=== PATIENT | male | born 1990 | race African-American/Black ===

== ENCOUNTER 2017-06-20 09:18 | Emergency (ER) | payer SELFPAY ==
[~2017-06-20] VITALS: Ht 167.6 cm; Wt 84.1 kg
[2017-06-20 09:21] VITALS: BP 131/78; PULSE 68; TEMP 98
[2017-06-20 11:17] LABS: PH 6 (5-8); SQUAMOUS EPITHELIAL None Seen /hpf; URINE APPEARANCE Clear; URINE BACTERIA None Seen /hpf; URINE BILIRUBIN Negative (NEGATIVE); URINE BLOOD Negative (NEGATIVE); URINE COLOR Yellow; URINE GLUCOSE Negative (NEGATIVE); URINE KETONE Negative (NEGATIVE); URINE RBC 0-2 /hpf; URINE UROBILINOGEN Negative (NEGATIVE); URINE WBC 0-2 /hpf
[2017-06-20 12:34] LABS: CHLAMYDIA/TRACH by PCR Male NOT DETECTED; Neisseria Gon by PCR Male NOT DETECTED
== END 2017-06-20 11:40 | disposition home or self-care (01) ==
LOC: COL.ER 09:18
PROVIDERS: Emergency Medicine
DX: B27.90 Infectious mononucleosis, unspecified without complication (principal); J02.9 Acute pharyngitis, unspecified; N34.2 Other urethritis; R10.814 Left lower quadrant abdominal tenderness
CPT/HCPCS: J0696

== ENCOUNTER 2018-09-14 08:32 | Emergency (ER) | payer SELFPAY ==
[~2018-09-14] VITALS: Ht 167.6 cm; Wt 89.5 kg
[2018-09-14 08:54] VITALS: BP 133/62; TEMP 98.1
[2018-09-14] MEDS ORDERED: FLEXERIL 1010 MG/TAB PO (09:35)
[2018-09-14] MEDS ORDERED: PREDNISONE20 MG PO (09:35)
[2018-09-14 10:47] VITALS: PULSE 84
== END 2018-09-14 10:47 | disposition home or self-care (01) ==
LOC: COL.ER 08:32
DX: M54.31 Sciatica, right side (principal)
CPT/HCPCS: J1885

== ENCOUNTER 2020-01-09 07:51 | Emergency (ER) | payer SELFPAY ==
[~2020-01-09] VITALS: Ht 167.6 cm; Wt 84.1 kg
[~2020-01-09 07:51] MED LIST: FLEXERIL 1010 MG/TAB PO; PREDNISONE20 MG PO
[2020-01-09 07:59] VITALS: BP 127/88; TEMP 97.6
[2020-01-09 08:18] LABS: COLLECTION METHOD CLEAN CATCH
[2020-01-09] MEDS ORDERED: DOXYCYCLINE 10100 MG PO (08:24)
[2020-01-09] MEDS ORDERED: VALTREX1 GM PO (08:24)
[2020-01-09 08:27] LABS: MUCOUS Present /lpf; PH 6 (5-8); SQUAMOUS EPITHELIAL None Seen /hpf; URINE APPEARANCE Clear; URINE BACTERIA None Seen /hpf; URINE BILIRUBIN Negative (NEGATIVE); URINE BLOOD Negative (NEGATIVE); URINE COLOR Yellow; URINE GLUCOSE Negative (NEGATIVE); URINE KETONE Negative (NEGATIVE); URINE LEUKOCYTE ESTERASE Negative (NEGATIVE); URINE NITRATE Negative (NEGATIVE); URINE PROTEIN(semi-quant) Negative (NEGATIVE); URINE RBC 0-2 /hpf; URINE UROBILINOGEN Negative (NEGATIVE)
[2020-01-09 09:00] VITALS: PULSE 78
== END 2020-01-09 09:00 | disposition home or self-care (01) ==
LOC: COL.ER 07:51
PROVIDERS: Emergency Medicine
DX: N50.9 Disorder of male genital organs, unspecified (principal); R30.0 Dysuria
CPT/HCPCS: J0696